=== PATIENT | male | born 1940 | race Caucasian/White ===

== ENCOUNTER 2020-12-22 08:36 | Emergency (ER) | payer MEDICARE, BC ==
[2020-12-22] MEDS ORDERED: Aspirin 81 MG Tab.Chew PO ONE (09:59)
--- NOTE | 2020-12-22 10:05 | EDM.PDOC ---
ED HPI GENERAL MEDICAL PROBLEM - General Chief Complaint: Neuro Symptoms/Deficits Stated Complaint: CAN'T MOVE LEFT ARM Time Seen by Provider: 12/22/20 09:30 Source of Information: Reports: Patient, Old Records, RN History Limitations: Reports: Other (limited records) - History of Present Illness INITIAL COMMENTS - FREE TEXT/NARRATIVE: 80 yo male here with his from home after he awoke after 7 am today with L hand weakness. He believes that he was fine when he awoke at 4 am. No hx of CVA or afib. Is not on any anticoagulants. Has a hx of valvular heart dz and has an appt tomorrow regarding his heart valves with cardiology. He had only one swallow of water today orally and did not choke. He is not aware of any other neurological deficits currently. No headache. Onset: Today Onset Date: 12/22/20 Duration: Hour(s): (onset between 4 am and 7 am today) Location: Reports: Upper Extremity, Left Quality: Reports: Other (no pain) Severity: Severe (L hand/wrist weakness) Improves with: Reports: None Worsens with: Reports: None Context: Reports: Other (See HPI) Associated Symptoms: Reports: Weakness (L hand and wrist) Treatments IOS PROGRAMMER: Reports: Other (see below) (none) - Related Data Allergies Allergy/AdvReac Type Severity Reaction Status Date / Time No Known Allergies Allergy Verified 12/22/20 09:02 Home Meds: Home Meds Furosemide [Lasix] 40 mg PO DAILY 12/22/20 [History] lisinopriL [Lisinopril] 10 mg PO DAILY 12/22/20 [History] Past Medical History HEENT History: Reports: Impaired Vision Cardiovascular History: Reports: Bypass Neurological History: Reports: Other (See Below) Other Neuro History: can not move L fingers Hematologic History: Reports: Anemia, B12 Deficiency - Past Surgical History Cardiovascular Surgical History: Reports: Coronary Artery Bypass Social & Family History - Tobacco Use Tobacco Use Status *Q: Never Tobacco User ED ROS GENERAL - Review of Systems Review Of Systems: See Below Constitutional: Reports: No Symptoms HEENT: Reports: No Symptoms Respiratory: Reports: No Symptoms, Cough Cardiovascular: Reports: Edema (bilat chronic LE edema) GI/Abdominal: Reports: No Symptoms : Reports: No Symptoms Musculoskeletal: Reports: No Symptoms Skin: Reports: No Symptoms Neurological: Reports: Weakness (L hand and wrist). Denies: Numbness ED EXAM, NEURO - Physical Exam Exam: See Below Exam Limited By: No Limitations General Appearance: Alert, WD/WN, No Apparent Distress Eye Exam: Bilateral Eye: EOMI, Normal Inspection, PERRL Ears: Normal External Exam, Normal Canal, Hearing Grossly Normal, Normal TMs Nose: Normal Inspection, No Blood Throat/Mouth: Normal Inspection, Normal Lips, Normal Oropharynx, Normal Voice, No Airway Compromise Head Exam: Atraumatic, Normocephalic Neck: Normal Inspection Respiratory/Chest: No Respiratory Distress, Lungs Clear, Normal Breath Sounds, No Accessory Muscle Use Cardiovascular: Systolic Murmur, Irregularly Irregular. No: Regular Rate, Rhythm, No Edema, Tachycardia GI/Abdominal: Soft, Non-Tender Neurological: Alert, Normal Mood/Affect, CN II-XII Intact, Oriented x 3, Other (minimal movement of L hand and wrist, strength OK to arm flexion/ext. Stroke Scale 2 on initial exam. ) Course - Vital Signs Text/Narrative:: [facility] neurology, Dr. Wadsworth accepted @ 123 Last Recorded V/S: Last Vital Signs Temp 36.6 C 12/22/20 08:54 Pulse 59 L 12/22/20 12:08 Resp 18 12/22/20 08:54 BP 178/88 H 12/22/20 12:08 Pulse Ox 98 12/22/20 12:08 - Orders/Labs/Meds Orders: Active Orders 24 hr Category Date Time Status Cardiac Monitoring [RC] .As Directed Care 12/22/20 09:19 Active Sodium Chloride 0.9% [Saline Flush] Med 12/22/20 10:00 Active 10 ml FLUSH ASDIRECTED PRN Saline Lock Insert [OM.PC] Routine Oth 12/22/20 10:00 Ordered EKG 12 Lead [EK] Routine Ther 12/22/20 10:09 Ordered Medication Orders Sodium Chloride (Sodium Chloride 0.9% 10 Ml Syringe) 10 ml FLUSH ASDIRECTED PRN PRN Reason: Keep Vein Open Last Admin: 12/22/20 11:15 Dose: 10 ml Documented by: Admin: 12/22/20 11:14 Dose: 10 ml Documented by: Admin: 12/22/20 10:21 Dose: 10 ml Documented by: MANUEL Labs: Laboratory Tests 12/22/20 12/22/20 12/22/20 Range/Units 10:07 10:07 10:48 WBC 6.1 (4.5-11.0) K/uL RBC 3.30 L (4.30-5.90) M/uL Hgb 11.0 L (12.0-15.0) g/dL Hct 33.7 L (40.0-54.0) % MCV 102 H (80-98) fL MCH 33 H (27-31) pg MCHC 33 (32-36) % Plt Count 216 (150-400) K/uL Sodium 143 (140-148) mmol/L Potassium 4.1 (3.6-5.2) mmol/L Chloride 102 (100-108) mmol/L Carbon Dioxide 32 (21-32) mmol/L Anion Gap 9.4 (5.0-14.0) mmol/L BUN 31 H (7-18) mg/dL Creatinine 2.5 H (0.8-1.3) mg/dL Est Cr Clr Drug Dosing 26.63 mL/min Estimated GFR (MDRD) 25 L (>60) Glucose 97 (74-106) mg/dL Calcium 9.0 (8.5-10.1) mg/dL Troponin I < 0.017 (0.000-0.056) ng/mL Urine Color Yellow (YELLOW) Urine Appearance Clear (CLEAR) Urine pH 7.0 (5.0-8.0) Ur Specific [place] 1.020 (1.008-1.030) Urine Protein 100 H (NEGATIVE) mg/dL Urine Glucose (UA) Negative (NEGATIVE) mg/dL Urine Ketones Negative (NEGATIVE) mg/dL Urine Occult Blood Negative (NEGATIVE) Urine Nitrite Negative (NEGATIVE) Urine Bilirubin Negative (NEGATIVE) Urine Urobilinogen 1.0 (0.2-1.0) EU/dL Ur Leukocyte Esterase Negative (NEGATIVE) Urine RBC Not seen (0-5) Urine WBC Not seen (0-5) Ur Epithelial Cells Not seen Amorphous Sediment Not seen Urine Bacteria Not seen Urine Mucus Not seen Meds: Medications Generic Name Dose Route Start Last Admin Trade Name Freq PRN Reason Stop Dose Admin Sodium Chloride 10 ml 12/22/20 10:00 12/22/20 11:15 Sodium Chloride 0.9% 10 Ml Syringe FLUSH 10 ml ASDIRECTED PRN Administration Keep Vein Open Discontinued Medications Generic Name Dose Route Start Last Admin Trade Name Valentino PRN Reason Stop Dose Admin Aspirin 324 mg 12/22/20 09:59 12/22/20 10:20 Aspirin 81 Mg Tab.Chew PO 12/22/20 10:00 324 mg ONETIME ONE Administration Sodium Chloride 100 mls @ 4 mls/sec 12/22/20 10:59 12/22/20 11:14 Normal Saline IV 12/22/20 11:00 4 mls/sec ASDIRECTED STA Administration Iopamidol 100 ml 12/22/20 10:59 12/22/20 11:14 Iopamidol 755 Mg/Ml 100 Ml Bottle IV 12/22/20 11:00 100 ml . DIRECTED STA Administration Lisinopril 10 mg 12/22/20 12:21 Lisinopril 10 Mg Tab PO 12/22/20 12:22 ONETIME ONE - Radiology Interpretation Free Text/Narrative:: Head CT- nothing acute Angio Head and neck-no large obstructions, multiple small arterial narrowings. CT Results Date: 12/22/20 - Re-Assessments/Exams Free Text/Narrative Re-Assessment/Exam: 12/22/20 10:48 L hand and wrist fxn improved, still not normal. 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 - Discharge Information *PRESCRIPTION DRUG MONITORING PROGRAM REVIEWED*: Not Applicable *COPY OF PRESCRIPTION DRUG MONITORING REPORT IN PATIENT RIO: Not Applicable Referrals: Cas Disla MD [Primary Care Provider] - Forms: ED Department Discharge Sepsis Event Note (ED) - Evaluation Sepsis Screening Result: No Definite Risk - Focused Exam Vital Signs: Vital Signs Temp Pulse Resp BP Pulse Ox 12/22/20 12:08 59 L 178/88 H 98 12/22/20 11:27 75 188/92 H 98 12/22/20 09:14 62 156/79 H 12/22/20 08:54 36.6 C 81 18 156/79 H 95 - My Orders Last 24 Hours: My Active Orders 12/22/20 09:19 Cardiac Monitoring [RC] .As Directed 12/22/20 10:00 Sodium Chloride 0.9% [Saline Flush] 10 ml FLUSH ASDIRECTED PRN Saline Lock Insert [OM.PC] Routine 12/22/20 10:09 EKG 12 Lead [EK] Routine - Assessment/Plan Last 24 Hours: My Active Orders 12/22/20 09:19 Cardiac Monitoring [RC] .As Directed 12/22/20 10:00 Sodium Chloride 0.9% [Saline Flush] 10 ml FLUSH ASDIRECTED PRN Saline Lock Insert [OM.PC] Routine 12/22/20 10:09 EKG 12 Lead [EK] Routine
--- NOTE | 2020-12-22 10:09 | CT ---
Head wo Cont CLINICAL HISTORY: Can't move right arm COMPARISON: None TECHNIQUE: Transverse scans were obtained from the base of the skull through the vertex without IV contrast on a multislice, multidetector CT scanner. Auto dosage reduction and iterative reconstruction techniques employed. FINDINGS: No focal abnormal parenchymal density is identified. There is no mass effect, hemorrhage, or extraaxial collection. The basal cisterns and sulci over the convexities are prominent. The ventricles are prominent. There is some minimal fluid density in the medial portion of the right mastoid air cells. IMPRESSION: Age-related atrophy. No acute intracranial process identified
[2020-12-22] MEDS: Sodium Chloride 0.9% 10 ML Syringe FLUSH PRN ×3 (10:21→11:15)
[2020-12-22] MEDS ORDERED: Sodium Chloride 0.9% 100 ML IV STA (10:59)
[2020-12-22] MEDS ORDERED: Iopamidol 755 Mg/ML 100 ML Bottle IV STA (10:59)
--- NOTE | 2020-12-22 12:10 | CT ---
Ang Neck CLINICAL HISTORY: Hand and wrist weakness TECHNIQUE: Multiple axial images were obtained through the neck without and with the IV infusion of iodinated contrast. From these images sagittal, coronal, and 3D reconstructions of the aortic arch and carotids were obtained and viewed on a dedicated and independent workstation. NASCET criteria is used. Auto dosage reduction and iterative reconstruction techniques employed. FINDINGS: There is atherosclerotic and widening of the aortic arch and proximal brachiocephalic vessels. There is some minimal hard plaque. There is mild stenosis at the origin of the right to the subclavian artery. Both vertebral arteries are patent. There is some mild stenosis at the origin of the left. There is mild to moderate hard plaque in the right carotid bifurcation. There is segmental stenosis of the proximal ICA between 50 and 60% There is moderate hard plaque in the left carotid bifurcation with ICA stenosis less than 50% IMPRESSION: Diffuse hard plaque formation Segmental stenosis of the proximal right ICA at 50-60%
[2020-12-22] MEDS ORDERED: Lisinopril 10 MG Tab PO ONE (12:21)
--- NOTE | 2020-12-22 12:26 | CT ---
Ang Head CLINICAL HISTORY: Left hand and wrist weakness. COMPARISON: None TECHNIQUE: Multiple volume rendered and MIP 3D reconstructions were generated from source images obtained on a spiral scanner before and after intravenous iodinated contrast enhancement prescribed dose FINDINGS: Internal carotid arteries: Show some hard plaque formation in the carotid siphons bilaterally. This causes mild stenosis bilaterally slightly greater on the left. There is some generalized intimal irregularity in the [place] vessels. Anterior cerebral arteries: No focal significant stenosis Middle cerebral arteries: There is a focal stenosis at the proximal left MCA Posterior cerebral arteries: There are mild segmental stenoses of the right posterior cerebral artery. The left posterior cerebral artery is fed from the left carotid circulation Vertebral/basilar arteries: There is a dominant left vertebral artery. There is mild stenosis at the distal basilar artery. IMPRESSION: Diffuse intimal irregularity throughout the [place] vessels which appear somewhat small. No definite vessel cut off is identified Mild focal stenoses in both carotid siphons due to hard plaque Mild focal stenosis at the origin of the left middle cerebral artery Persistent circulation
== END 2020-12-22 14:15 ==
LOC: JP.ED 08:36
DX: I63.9 Cerebral infarction, unspecified (principal); I12.9 Hypertensive chronic kidney disease with stage 1 through stage 4 chronic kidney disease, or unspecified chronic kidney disease; N18.4 Chronic kidney disease, stage 4 (severe); D63.1 Anemia in chronic kidney disease; R29.702 NIHSS score 2; Z86.79 Personal history of other diseases of the circulatory system
CPT/HCPCS: 36415; 70450; 70496; 70498; 80048; 81001; 84484; 85027; 93005; 99285; A9270; Q9967

== ENCOUNTER 2022-12-01 14:28 | Inpatient (IN) | payer MEDICARE, BC ==
[2022-12-01] MEDS ORDERED: HYDROmorphone 0.5 MG/0.5 ML Syringe IVPUSH ONE (14:40)
[2022-12-01] MEDS ORDERED: Sodium Chloride 0.9% 1,000 ML IV SCH ×2 (14:45→17:26)
[2022-12-01 14:47] LABS: HEMATOCRIT 30.5 % (38.4-49.7); HEMOGLOBIN 10.2 g/dL (12.9-16.9); MEAN CORPUSCULAR HEMOGLOBIN 35.4 pg (31.6-35.5); MEAN CORPUSCULAR HGB CONC 33.4 g/dL (31.6-35.5); MEAN CORPUSCULAR VOLUME 105.9 fL (81.4-99.0); RED BLOOD CELL COUNT 2.88 M/uL (4.14-5.76); WHITE BLOOD CELL COUNT,WBC 7.6 K/uL (3.2-11.0)
[2022-12-01 15:03] LABS: PROTHROMBIN TIME 10.2 sec (9.2-10.6)
[2022-12-01 15:08] LABS: A/G RATIO 0.9 (1.2-2.2); ALANINE AMINOTRANSFERASE,ALT 16 U/L (12-78); ALBUMIN 3.2 g/dL (3.4-5.0); ALKALINE PHOSPHATASE 96 U/L (46-116); ASPARTATE AMNIOTRANSFERASE,AST 22 U/L (15-37); BILIRUBIN TOTAL 0.5 mg/dL (0.2-1.0); BLOOD UREA NITROGEN,BUN 38 mg/dL (7-18); CALCIUM 8.7 mg/dL (8.5-10.1); CARBON DIOXIDE,CO2 25 mmol/L (21-32); CHLORIDE,CL 104 mmol/L (100-108); CREATININE 2.6 mg/dL (0.8-1.3); EST CRCL DRUG DOSING (CG) 24.76 mL/min; ESTIMATED GFR 24 mL/min (>60); GLUCOSE RANDOM 108 mg/dL (74-106); POTASSIUM,K 4.1 mmol/L (3.6-5.2); PROTEIN TOTAL,TP 6.7 g/dL (6.4-8.2); SODIUM,NA 139 mmol/L (140-148)
[2022-12-01 15:09] LABS: ANION GAP 14.1 mmol/L (5.0-14.0)
[2022-12-01] MEDS ORDERED: Naloxone 0.4 MG/ML SDV IVPUSH PRN (17:26)
[2022-12-01] MEDS ORDERED: Sodium Chloride 0.9% 10 ML Syringe FLUSH PRN (17:26)
[2022-12-01] MEDS: oxyCODONE 5 MG Tab PO PRN ×2 (18:00→21:58)
[2022-12-01] MEDS: Heparin Sodium 5,000 Units/ML Vial SUBCUT SCH (18:00)
[2022-12-01] MEDS: HYDROmorphone 0.5 MG/0.5 ML Syringe IVPUSH PRN (19:55)
[2022-12-01] MEDS: Ondansetron 4 MG/2 ML SDV IV PRN (20:02)
[2022-12-01] MEDS: Sennosides/Docusate Sodium 50-8.6 MG Tab PO SCH (20:09)
[2022-12-01] MEDS ORDERED: CARBIDOPA PO SCH (21:00)
[2022-12-01] MEDS ORDERED: LEVODOPA PO SCH (21:00)
[2022-12-01] MEDS: Acetaminophen 325 MG Tab PO PRN (23:57)
[2022-12-02] MEDS: HYDROmorphone 0.5 MG/0.5 ML Syringe IVPUSH PRN ×6 (00:20→19:27)
[2022-12-02] MEDS: Heparin Sodium 5,000 Units/ML Vial SUBCUT SCH ×3 (03:13→17:44)
[2022-12-02] MEDS: Ondansetron 4 MG/2 ML SDV IV PRN ×2 (03:19→08:39)
[2022-12-02 04:28] LABS: HEMATOCRIT 28.5 % (38.4-49.7); HEMOGLOBIN 9.3 g/dL (12.9-16.9); MEAN CORPUSCULAR HEMOGLOBIN 34.7 pg (31.6-35.5); MEAN CORPUSCULAR HGB CONC 32.6 g/dL (31.6-35.5); MEAN CORPUSCULAR VOLUME 106.3 fL (81.4-99.0); RED BLOOD CELL COUNT 2.68 M/uL (4.14-5.76)
[2022-12-02 04:41] LABS: CALCIUM 8.4 mg/dL (8.5-10.1); CREATININE 2.4 mg/dL (0.8-1.3); EST CRCL DRUG DOSING (CG) 27.2 mL/min; MAGNESIUM 2.2 mg/dL (1.8-2.4); POTASSIUM,K 4.6 mmol/L (3.6-5.2)
[2022-12-02 05:08] LABS: ANION GAP 12.6 mmol/L (5.0-14.0)
[2022-12-02] MEDS: Aspirin 81 MG Tab.EC PO SCH (08:29)
[2022-12-02] MEDS: Potassium Chloride 10 MEQ Cap.ER PO SCH (08:29)
[2022-12-02] MEDS: Metoprolol Succinate 25 MG Tab.ER PO SCH (08:30)
[2022-12-02] MEDS: Tamsulosin 0.4 MG Cap.ER PO SCH (08:30)
[2022-12-02] MEDS: Pravastatin 20 MG Tab PO SCH (08:30)
[2022-12-02] MEDS: Sennosides/Docusate Sodium 50-8.6 MG Tab PO SCH ×2 (08:30→21:00)
[2022-12-02] MEDS: Finasteride 5 MG Tab PO SCH (08:31)
[2022-12-02] MEDS ORDERED: Furosemide 40 MG/4 ML VIAL IVPUSH ONE (09:00)
[2022-12-02] MEDS: Carbidopa/Levodopa 25-100 MG Tab PO SCH ×3 (09:21→21:00)
[2022-12-02] MEDS ORDERED: Metoprolol Tartrate 25 MG Tab PO ONE (20:37)
[2022-12-03] MEDS: HYDROmorphone 0.5 MG/0.5 ML Syringe IVPUSH PRN ×3 (05:09→16:06)
[2022-12-03] MEDS: Sodium Chloride 0.9% 1,000 ML IV SCH (07:06)
[2022-12-03] MEDS: Metoprolol Succinate 25 MG Tab.ER PO SCH (09:37)
[2022-12-03] MEDS: Carbidopa/Levodopa 25-100 MG Tab PO SCH ×3 (09:39→20:47)
[2022-12-03] MEDS: Nozin Nasal Sanitizer NASBOTH SCH ×2 (10:15→20:47)
[2022-12-03] MEDS ORDERED: ceFAZolin 1 GM in Premix Bag 1 BAG IV ONE (10:30)
[2022-12-03] MEDS ORDERED: fentaNYL 100 MCG/2 ML SDV ONE (11:32)
[2022-12-03] MEDS ORDERED: Propofol 200 MG/20 ML SDV ONE ×2 (11:32→12:21)
[2022-12-03] MEDS: Aspirin 81 MG Tab.EC PO SCH (12:10)
[2022-12-03] MEDS ORDERED: Sodium Chloride 0.9% 10 ML ONE (12:10)
[2022-12-03] MEDS ORDERED: ceFAZolin 1 GM Vial ONE (12:10)
[2022-12-03] MEDS ORDERED: Lactated Ringers 1,000 ML ONE (12:54)
[2022-12-03] MEDS: oxyCODONE 5 MG Tab PO PRN ×2 (15:36→20:39)
[2022-12-03] MEDS: Finasteride 5 MG Tab PO SCH (17:12)
[2022-12-03] MEDS: Pravastatin 20 MG Tab PO SCH (17:12)
[2022-12-03] MEDS: Sennosides/Docusate Sodium 50-8.6 MG Tab PO SCH ×2 (17:12→20:47)
[2022-12-03] MEDS: Tamsulosin 0.4 MG Cap.ER PO SCH (17:13)
[2022-12-03] MEDS: Potassium Chloride 10 MEQ Cap.ER PO SCH (17:13)
[2022-12-03] MEDS: Polyethylene Glycol 3350 Powder 17 GM Packet PO PRN (20:40)
[2022-12-03] MEDS: Ondansetron 4 MG/2 ML SDV IV PRN (20:40)
[2022-12-03] MEDS: Acetaminophen 325 MG Tab PO PRN (20:40)
[2022-12-04] MEDS: Sodium Chloride 0.9% 1,000 ML IV SCH (01:23)
[2022-12-04 05:49] LABS: HEMATOCRIT 24.2 % (38.4-49.7); HEMOGLOBIN 8.1 g/dL (12.9-16.9); MEAN CORPUSCULAR HEMOGLOBIN 35.4 pg (31.6-35.5); MEAN CORPUSCULAR HGB CONC 33.5 g/dL (31.6-35.5); MEAN CORPUSCULAR VOLUME 105.7 fL (81.4-99.0); RED BLOOD CELL COUNT 2.29 M/uL (4.14-5.76); WHITE BLOOD CELL COUNT,WBC 6.9 K/uL (3.2-11.0)
[2022-12-04 06:09] LABS: CALCIUM 8.3 mg/dL (8.5-10.1); CREATININE 2.4 mg/dL (0.8-1.3); EST CRCL DRUG DOSING (CG) 27.2 mL/min; POTASSIUM,K 4.5 mmol/L (3.6-5.2)
[2022-12-04 06:14] LABS: ANION GAP 10.5 mmol/L (5.0-14.0)
[2022-12-04] MEDS: oxyCODONE 5 MG Tab PO PRN (07:16)
[2022-12-04] MEDS: Ondansetron 4 MG/2 ML SDV IV PRN (07:16)
[2022-12-04] MEDS: Nozin Nasal Sanitizer NASBOTH SCH ×2 (08:19→20:35)
[2022-12-04] MEDS: Aspirin 325 MG Tab.EC PO SCH ×2 (08:20→20:35)
[2022-12-04] MEDS: Carbidopa/Levodopa 25-100 MG Tab PO SCH ×3 (08:21→20:35)
[2022-12-04] MEDS: Pravastatin 20 MG Tab PO SCH (08:27)
[2022-12-04] MEDS: Sennosides/Docusate Sodium 50-8.6 MG Tab PO SCH ×2 (08:27→20:35)
[2022-12-04] MEDS: Metoprolol Succinate 25 MG Tab.ER PO SCH (08:28)
[2022-12-04] MEDS: Finasteride 5 MG Tab PO SCH (08:28)
[2022-12-04] MEDS: Potassium Chloride 10 MEQ Cap.ER PO SCH (08:28)
[2022-12-04] MEDS: Tamsulosin 0.4 MG Cap.ER PO SCH (08:28)
[2022-12-04] MEDS: Aspirin 81 MG Tab.EC PO SCH (08:29)
[2022-12-04] MEDS: Acetaminophen 325 MG Tab PO PRN ×2 (08:29→13:21)
[2022-12-05 04:37] LABS: HEMATOCRIT 21.2 % (38.4-49.7); HEMOGLOBIN 7.2 g/dL (12.9-16.9); MEAN CORPUSCULAR HEMOGLOBIN 35.6 pg (31.6-35.5); RED BLOOD CELL COUNT 2.02 M/uL (4.14-5.76); WHITE BLOOD CELL COUNT,WBC 7.2 K/uL (3.2-11.0)
[2022-12-05 04:54] LABS: ANION GAP 9.8 mmol/L (5.0-14.0); CREATININE 2.5 mg/dL (0.8-1.3); EST CRCL DRUG DOSING (CG) 26.12 mL/min; POTASSIUM,K 3.9 mmol/L (3.6-5.2)
[2022-12-05] MEDS: Pantoprazole 40 MG Tab.CR PO SCH (07:33)
[2022-12-05] MEDS ORDERED: Benzocaine/Cetylpyridinium/Menthol Lozenge MUCMEM PRN (07:41)
[2022-12-05] MEDS: Tamsulosin 0.4 MG Cap.ER PO SCH (08:49)
[2022-12-05] MEDS: Aspirin 325 MG Tab.EC PO SCH ×2 (08:49→20:47)
[2022-12-05] MEDS: Potassium Chloride 10 MEQ Cap.ER PO SCH (08:49)
[2022-12-05] MEDS: Nozin Nasal Sanitizer NASBOTH SCH ×2 (08:49→20:46)
[2022-12-05] MEDS: Pravastatin 20 MG Tab PO SCH (08:49)
[2022-12-05] MEDS: Sennosides/Docusate Sodium 50-8.6 MG Tab PO SCH ×2 (08:50→20:47)
[2022-12-05] MEDS: Finasteride 5 MG Tab PO SCH (08:50)
[2022-12-05] MEDS: Carbidopa/Levodopa 25-100 MG Tab PO SCH ×3 (08:50→20:47)
[2022-12-05] MEDS: Metoprolol Succinate 25 MG Tab.ER PO SCH (08:52)
[2022-12-05] MEDS: oxyCODONE 5 MG Tab PO PRN ×2 (09:26→17:52)
[2022-12-05] MEDS: Polyethylene Glycol 3350 Powder 17 GM Packet PO PRN (09:31)
[2022-12-05] MEDS: Acetaminophen 325 MG Tab PO PRN ×2 (15:40→21:48)
[2022-12-05] MEDS ORDERED: Polyethylene Glycol 3350 Powder 17 GM Packet PO ONE (20:02)
[2022-12-06] MEDS ORDERED: Magnesium Hydroxide 400 MG/5 ML Susp 30 ML Cup PO ONE (04:55)
[2022-12-06 05:54] LABS: HEMOGLOBIN 8.2 g/dL (12.9-16.9); MEAN CORPUSCULAR HEMOGLOBIN 34.3 pg (31.6-35.5); MEAN CORPUSCULAR HGB CONC 34.2 g/dL (31.6-35.5); MEAN CORPUSCULAR VOLUME 100.4 fL (81.4-99.0); RED BLOOD CELL COUNT 2.39 M/uL (4.14-5.76); WHITE BLOOD CELL COUNT,WBC 7.2 K/uL (3.2-11.0)
[2022-12-06 06:07] LABS: ANION GAP 8.8 mmol/L (5.0-14.0); CALCIUM 8.4 mg/dL (8.5-10.1); CREATININE 2.5 mg/dL (0.8-1.3); EST CRCL DRUG DOSING (CG) 26.12 mL/min; POTASSIUM,K 4.3 mmol/L (3.6-5.2)
[2022-12-06] MEDS ORDERED: Bisacodyl 10 MG Supp RECTAL ONE (08:00)
[2022-12-06] MEDS: oxyCODONE 5 MG Tab PO PRN (08:23)
[2022-12-06] MEDS: Pantoprazole 40 MG Tab.CR PO SCH (08:23)
[2022-12-06] MEDS: Aspirin 325 MG Tab.EC PO SCH (08:25)
[2022-12-06] MEDS: Finasteride 5 MG Tab PO SCH (08:25)
[2022-12-06] MEDS: Potassium Chloride 10 MEQ Cap.ER PO SCH (08:25)
[2022-12-06] MEDS: Sennosides/Docusate Sodium 50-8.6 MG Tab PO SCH (08:25)
[2022-12-06] MEDS: Pravastatin 20 MG Tab PO SCH (08:26)
[2022-12-06] MEDS: Nozin Nasal Sanitizer NASBOTH SCH (08:26)
[2022-12-06] MEDS: Tamsulosin 0.4 MG Cap.ER PO SCH (08:26)
[2022-12-06] MEDS: Carbidopa/Levodopa 25-100 MG Tab PO SCH (08:26)
[2022-12-06] MEDS: Metoprolol Succinate 25 MG Tab.ER PO SCH (09:16)
== END 2022-12-06 10:16 | DRG 522 ==
LOC: JP.ED 14:28 → JP.MS 16:13
PROVIDERS: ADMIT Hospitalist; ATTEND Internal Medicine
PROC: 0SRR01A Replacement of Right Hip Joint, Femoral Surface with Metal Synthetic Substitute, Uncemented, Open Approach (ICD-10-PCS; 2022-12-03)
PROC: 30233N1 Transfusion of Nonautologous Red Blood Cells into Peripheral Vein, Percutaneous Approach (ICD-10-PCS; principal; 2022-12-05)
DX: S72.001A Fracture of unspecified part of neck of right femur, initial encounter for closed fracture (principal); N18.4 Chronic kidney disease, stage 4 (severe); I50.32 Chronic diastolic (congestive) heart failure; I13.0 Hypertensive heart and chronic kidney disease with heart failure and stage 1 through stage 4 chronic kidney disease, or unspecified chronic kidney disease; D62 Acute posthemorrhagic anemia; E86.0 Dehydration; Y92.009 Unspecified place in unspecified non-institutional (private) residence as the place of occurrence of the external cause; I25.10 Atherosclerotic heart disease of native coronary artery without angina pectoris; N40.0 Benign prostatic hyperplasia without lower urinary tract symptoms; Z20.822 Contact with and (suspected) exposure to COVID-19; G20 Parkinson's disease; Z79.82 Long term (current) use of aspirin; Z95.2 Presence of prosthetic heart valve; Z79.899 Other long term (current) drug therapy; Z95.1 Presence of aortocoronary bypass graft; W01.0XXA Fall on same level from slipping, tripping and stumbling without subsequent striking against object, initial encounter
CPT/HCPCS: 36415; 36430; 51798; 71045; 71045-26; 72170; 72170-26; 73502-26-RT; 73502-RT; 80048; 80053; 83735; 85018; 85027; 85610; 86850; 86900; 86901; 86920; 86922; 93005; 93010; 96361; 96374; 97110-GP; 97162-GP; 97165-GO; 97530-GP; 97535-GO; 99222; 99232; 99239; 99285; 99285-25; A9270-GY; C1713; C1776; J0690; J1170; J1644; J1940; J2405; J2704; J3010; J3490; J7030; J7120; P9016; U0002

== ENCOUNTER 2024-12-02 15:59 | Inpatient (IN) | payer MEDICARE, BC ==
[2024-12-02 16:51] LABS: PLATELET COUNT,PLT 139 K/uL (130-375); RED BLOOD CELL COUNT 2.72 M/uL (4.14-5.76); WHITE BLOOD CELL COUNT,WBC 5.1 K/uL (3.2-11.0)
[2024-12-02 17:14] LABS: EOSINOPHILS ABSOLUTE MAN 0.10 K/uL (0.00-0.40); EOSINOPHILS PERCENT MAN 2 % (2-4); LYMPHOCYTES ABSOLUTE MAN 1.33 K/uL (0.8-3.3); LYMPHOCYTES PERCENT MAN 26 % (24-44); MONOCYTES ABSOLUTE MAN 0.26 K/uL (0.20-0.90); MONOCYTES PERCENT MAN 5 % (2-6); NEUTROPHILS ABSOLUTE MAN 3.42 K/uL (1.0-7.6); SEG NEUTROPHILS PERCENT MAN 67 % (36-66)
[2024-12-02 17:23] LABS: BLOOD UREA NITROGEN,BUN 47.0 mg/dL (7-18); CARBON DIOXIDE,CO2 29.0 mmol/L (21-32); CHLORIDE,CL 110.0 mmol/L (100-108); CREATININE 3.2 mg/dL (0.8-1.3); EST CRCL DRUG DOSING (CG) 19.42 mL/min; ESTIMATED GFR 18.0 mL/min (>60); GLUCOSE RANDOM 109.0 mg/dL (74-106); POTASSIUM,K 4.6 mmol/L (3.6-5.2); PRO B-TYPE NATRIUR PEPT,BNPPRO 30146.0 pg/mL (5-450); SODIUM,NA 143.0 mmol/L (140-148); TROPONIN I HIGH SENSITIVITY 39.4 pg/mL (<=60.3)
[2024-12-02] MEDS: Bumetanide 1 MG/4 ML MDV IVPUSH ONE ×2 (17:50→22:25)
[2024-12-02] MEDS ORDERED: Ondansetron 4 MG Tab.DIS PO PRN (21:52)
[2024-12-02] MEDS ORDERED: Sodium Chloride 0.9% 10 ML Syringe FLUSH PRN (21:52)
[2024-12-02] MEDS ORDERED: Ondansetron 4 MG/2 ML SDV IV PRN (21:52)
[2024-12-02] MEDS ORDERED: Sennosides/Docusate Sodium 50-8.6 MG Tab PO PRN (21:52)
[2024-12-02] MEDS ORDERED: Magnesium Hydroxide 400 MG/5 ML Susp 30 ML Cup PO PRN (21:52)
[2024-12-02] MEDS: Nystatin Topical Powder 15 GM Bottle TOP SCH (23:18)
[2024-12-03 05:28] LABS: PLATELET COUNT,PLT 155.0 K/uL (130-375); RED BLOOD CELL COUNT 2.8 M/uL (4.14-5.76); WHITE BLOOD CELL COUNT,WBC 5.3 K/uL (3.2-11.0)
[2024-12-03 05:46] LABS: BLOOD UREA NITROGEN,BUN 45.0 mg/dL (7-18); CARBON DIOXIDE,CO2 29.0 mmol/L (21-32); CHLORIDE,CL 110.0 mmol/L (100-108); CREATININE 3.1 mg/dL (0.8-1.3); EST CRCL DRUG DOSING (CG) 20.05 mL/min; ESTIMATED GFR 19.0 mL/min (>60); GLUCOSE RANDOM 108.0 mg/dL (74-106); POTASSIUM,K 4.4 mmol/L (3.6-5.2); SODIUM,NA 143.0 mmol/L (140-148)
[2024-12-03] MEDS: Sennosides/Docusate Sodium 50-8.6 MG Tab PO SCH (08:19)
[2024-12-03] MEDS: Potassium Chloride 10 MEQ Cap.ER PO SCH (08:19)
[2024-12-03] MEDS: Nystatin Topical Powder 15 GM Bottle TOP SCH (08:20)
[2024-12-03] MEDS: Bumetanide 2.5 MG/10 ML MDV IVPUSH ONE (08:20)
[2024-12-03] MEDS: Bumetanide 2.5 MG/10 ML MDV IVPUSH SCH (16:25)
[2024-12-04] MEDS: Bumetanide 2.5 MG/10 ML MDV IVPUSH SCH (05:15)
[2024-12-04 06:07] LABS: BLOOD UREA NITROGEN,BUN 48.0 mg/dL (7-18); CARBON DIOXIDE,CO2 29.0 mmol/L (21-32); CHLORIDE,CL 108.0 mmol/L (100-108); CREATININE 3.1 mg/dL (0.8-1.3); EST CRCL DRUG DOSING (CG) 20.05 mL/min; ESTIMATED GFR 19.0 mL/min (>60); GLUCOSE RANDOM 100.0 mg/dL (74-106); POTASSIUM,K 4.4 mmol/L (3.6-5.2); SODIUM,NA 144.0 mmol/L (140-148)
[2024-12-04] MEDS: Bumetanide 1 MG/4 ML MDV IVPUSH SCH (15:30)
[2024-12-05] MEDS: Bumetanide 1 MG/4 ML MDV IVPUSH SCH (05:33)
[2024-12-05 06:12] LABS: BLOOD UREA NITROGEN,BUN 49.0 mg/dL (7-18); CARBON DIOXIDE,CO2 34.0 mmol/L (21-32); CHLORIDE,CL 106.0 mmol/L (100-108); CREATININE 3.2 mg/dL (0.8-1.3); EST CRCL DRUG DOSING (CG) 19.42 mL/min; ESTIMATED GFR 18.0 mL/min (>60); GLUCOSE RANDOM 92.0 mg/dL (74-106); POTASSIUM,K 4.1 mmol/L (3.6-5.2); SODIUM,NA 142.0 mmol/L (140-148)
== END 2024-12-05 12:10 | disposition home or self-care (01) | DRG 292 ==
LOC: JP.ED 15:59 → JP.MS 21:24
PROVIDERS: ADMIT Nurse Practitioner; ATTEND Internal Medicine
PROC: 0W993ZZ Drainage of Right Pleural Cavity, Percutaneous Approach (ICD-10-PCS; principal; 2024-12-03)
DX: I50.33 Acute on chronic diastolic (congestive) heart failure (principal); I42.9 Cardiomyopathy, unspecified; J91.8 Pleural effusion in other conditions classified elsewhere; N18.4 Chronic kidney disease, stage 4 (severe); Z66 Do not resuscitate; H54.7 Unspecified visual loss; D53.9 Nutritional anemia, unspecified; G20.B1 Parkinson's disease with dyskinesia, without mention of fluctuations; N40.0 Benign prostatic hyperplasia without lower urinary tract symptoms; R00.1 Bradycardia, unspecified; I50.9 Heart failure, unspecified; Z88.8 Allergy status to other drugs, medicaments and biological substances; Z95.2 Presence of prosthetic heart valve; Z95.1 Presence of aortocoronary bypass graft; Z86.73 Personal history of transient ischemic attack (TIA), and cerebral infarction without residual deficits; Z79.82 Long term (current) use of aspirin; Z79.899 Other long term (current) drug therapy; Z95.5 Presence of coronary angioplasty implant and graft
CPT/HCPCS: 36415; 71046 ×2; 71250; 80048; 83880; 84484; 85025; 93005; 96374; 99285; J3490; 32555; 83735; 85027; 93010; 93306; 99222; 99232; 99238; A9270-GY; C1729; J1650; J1939; J2003

== ENCOUNTER 2025-01-13 11:37 | Emergency (ER) | payer MEDICARE, BC ==
[2025-01-13] MEDS ORDERED: Iopamidol 755 Mg/ML 100 ML Bottle IV ONE (12:45)
[2025-01-13] MEDS ORDERED: Sodium Chloride 0.9% 10 ML Syringe FLUSH ONE (12:45)
[2025-01-13 12:47] LABS: BASOPHILS ABSOLUTE AUTO 0.05 K/uL (0.00-0.10); BASOPHILS PERCENT AUTO 0.9 % (0.1-1.3); EOSINOPHILS ABSOLUTE AUTO 0.18 K/uL (0.00-0.40); EOSINOPHILS PERCENT AUTO 3.4 % (0.0-5.4); IMMATURE GRAN PERCENT AUTO 0.4 % (0.0-0.7); LYMPHOCYTES ABSOLUTE AUTO 0.96 K/uL (0.8-3.3); LYMPHOCYTES PERCENT AUTO 18.0 % (11.4-47.7); MONOCYTES ABSOLUTE AUTO 0.46 K/uL (0.20-0.90); MONOCYTES PERCENT AUTO 8.6 % (3.3-12.6); NEUTROPHILS ABSOLUTE AUTO 3.67 K/uL (1.0-7.6); NEUTROPHILS PERCENT AUTO 68.7 % (40.0-78.1); PLATELET COUNT,PLT 145 K/uL (130-375); RED BLOOD CELL COUNT 2.41 M/uL (4.14-5.76); WHITE BLOOD CELL COUNT,WBC 5.3 K/uL (3.2-11.0)
[2025-01-13 12:48] LABS: IMMATURE GRAN ABSOLUTE AUTO 0.02 K/uL (0.00-0.23)
[2025-01-13 13:07] LABS: A/G RATIO 0.7 (1.2-2.2); ALANINE AMINOTRANSFERASE,ALT 7 U/L (12-78); ASPARTATE AMNIOTRANSFERASE,AST 15 U/L (15-37); BILIRUBIN TOTAL 0.6 mg/dL (0.2-1.0); BLOOD UREA NITROGEN,BUN 74 mg/dL (7-18); CARBON DIOXIDE,CO2 36 mmol/L (21-32); CHLORIDE,CL 99 mmol/L (100-108); EST CRCL DRUG DOSING (CG) 17.44 mL/min; ESTIMATED GFR 16 mL/min (>60); GLUCOSE RANDOM 103 mg/dL (74-106); POTASSIUM,K 4.3 mmol/L (3.6-5.2); PROTEIN TOTAL,TP 6.8 g/dL (6.4-8.2); SODIUM,NA 142 mmol/L (140-148)
[2025-01-13 13:10] LABS: CREATININE 3.5 mg/dL (0.8-1.3)
[2025-01-13 14:36] LABS: APPEARANCE,URINE CLEAR (CLEAR); GLUCOSE,URINE NEGATIVE (NEGATIVE); OCCULT BLOOD,URINE NEGATIVE (NEGATIVE)
[2025-01-13 14:47] LABS: SQUAMOUS EPITHELIAL CELLS,UR NOT SEEN /HPF; UROTHELIAL CELLS,URINE NOT SEEN /HPF
== END 2025-01-13 16:15 | disposition home or self-care (01) ==
LOC: JP.ED 11:37
DX: G45.9 Transient cerebral ischemic attack, unspecified (principal); I12.9 Hypertensive chronic kidney disease with stage 1 through stage 4 chronic kidney disease, or unspecified chronic kidney disease; N18.9 Chronic kidney disease, unspecified; Z86.73 Personal history of transient ischemic attack (TIA), and cerebral infarction without residual deficits; Z88.1 Allergy status to other antibiotic agents; Z79.899 Other long term (current) drug therapy; Z79.82 Long term (current) use of aspirin; Z79.890 Hormone replacement therapy
CPT/HCPCS: 36415; 70450; 80053; 81001; 85025; 93005; 96360; 99285; J7030; 93010